=== PATIENT | male | born 1985 | race Caucasian/White ===

== ENCOUNTER 2022-02-24 15:30 | Emergency (ER) | payer OTHER ==
[~2022-02-24] VITALS: Ht 182.9 cm; Wt 74.8 kg
--- NOTE | 2022-02-24 15:56 | NUR ---
TO ER BED 13, DEPRESSED, FEELING SUICIDAL W/ PLAN TO "HANG MYSELF" WANTS VOL PSYCH ADMIT TO [id number], BREATHING EVEN AND NON LABORED, CONNECTED TO MONITOR, AWAITING MD WINKLER
--- NOTE | 2022-02-24 16:00 | NUR ---
URINE SAMPLE AND COVID SWAB COLLECTED AND SENT TO LAB
[2022-02-24 16:33] LABS: BASOPHILS % (AUTO) 0.4 % (0.0-2.0); EOSINOPHILS % (AUTO) 0.7 % (0.0-6.0); HEMATOCRIT 44 % (39-51); HEMOGLOBIN 14.5 g/dL (13.5-17.5); LYMPHOCYTES # (AUTO) 1.3 K/uL (0.8-4.8); LYMPHOCYTES % (AUTO) 16.5 % (20.0-44.0); MEAN CORPUSCULAR HGB CONC 33 g/dl (31.0-36.0); MEAN CORPUSCULAR VOLUME 101 fL (80-96); MONOCYTES # (AUTO) 0.6 K/uL (0.1-1.30); MONOCYTES % (AUTO) 8.1 % (2.0-12.0); NEUTROPHILS # (AUTO) 5.7 K/uL (1.8-8.9); NEUTROPHILS % (AUTO) 74.3 % (43.0-81.0); PLATELET COUNT (AUTO) 226 K/uL (150-450); WHITE BLOOD COUNT (AUTO) 7.7 K/uL (4.3-11.0)
[2022-02-24 17:04] LABS: BILIRUBIN,URINE NEGATIVE (NEGATIVE); COLOR,URINE YELLOW (YELLOW); LEUKOCYTE ESTERASE ,URINE NEGATIVE (NEGATIVE); NITRITE, URINE NEGATIVE (NEGATIVE); PROTEIN,URINE NEGATIVE (NEGATIVE); UGLUCOSE NEGATIVE (NEGATIVE)
[2022-02-24 17:38] LABS: BACTERIA,URINE None seen /HPF (None Seen); MUCUS,URINE Few /LPF (None Seen); RBC,URINE 0-2 /HPF (0-2); SQUAMOUS EPITHELIAL CELL,UR 0-2 /HPF (None Seen); WBC,URINE 0-2 /HPF (0-3)
[2022-02-24 18:02] LABS: CALCIUM, SERUM 8.7 mg/dL (8.5-10.1); CARBON DIOXIDE 29 mmol/L (21-32); CHLORIDE 103 mmol/L (98-107); GLUCOSE 96 mg/dL (74-106); POTASSIUM 3.1 mmol/L (3.5-5.1); SODIUM SERUM 140 mmol/L (136-145); UREA NITROGEN, BLOOD 13 mg/dL (7-18)
--- NOTE | 2022-02-24 18:05 | NUR ---
DINNER TRAY PROVIDED. TOLERATED WELL
[2022-02-24 18:07] LABS: ALANINE AMINOTRANSFERASE 38 U/L (12-78); ALBUMIN 3.5 g/dL (3.4-5.0); ALKALINE PHOSPHATASE 126 U/L (46-116); ASPARTATE AMINOTRANSFERASE 36 U/L (15-37); BILIRUBIN,DIRECT 0.3 mg/dL (0.0-0.2); BILIRUBIN,TOTAL 1.1 mg/dL (0.2-1.0); TOTAL PROTEIN, SERUM 6.6 g/dL (6.4-8.2)
[2022-02-24 18:08] LABS: ACETAMINOPHEN 0 ug/ml (10-30); ALCOHOL, BLOOD < 3 mg/dL (0-0)
[2022-02-24] MEDS ORDERED: LORAZEPAM 1 MG TABLET ONE (18:17)
--- NOTE | 2022-02-24 18:19 | NUR ---
ANXIOUS, REQUESTING MEDICATION TO RELAX. DR EVANS AWARE. MEDICATED ORDERED.
[2022-02-24] MEDS ORDERED: LORAZEPAM 1 MG TABLET PO ONE (18:30)
[2022-02-24] MEDS ORDERED: POTASSIUM CHLORIDE 20 MEQ TAB.PRT.SR PO ONE ×2 (19:00→19:04)
--- NOTE | 2022-02-24 23:34 | NUR ---
CLINICALS FAXED TO [facility]
--- NOTE | 2022-02-25 04:32 | NUR ---
PER JESSICA FROM [facility], PT ACCEPTED BUT WILL CALL BACK AROUND 0900 FOR ACCEPTING INFO
[2022-02-25] MEDS ORDERED: LORAZEPAM 1 MG TABLET ONE ×3 (06:48→20:30)
[2022-02-25] MEDS ORDERED: LORAZEPAM 1 MG TABLET PO ONE ×3 (07:00→20:30)
--- NOTE | 2022-02-25 11:16 | NUR ---
CALLED INTAKE PT ACCEPTED AWAITING BED ASSIGNMENT PER
--- NOTE | 2022-02-25 11:37 | NUR ---
[facility] CALLED, BED NOT AVAILABLE YET
[2022-02-25] MEDS ORDERED: POTASSIUM CHLORIDE 20 MEQ TAB.PRT.SR PO ONE ×2 (14:00→14:03)
[2022-02-25] MEDS ORDERED: OLANZAPINE 10 MG VIAL IM ONE ×2 (14:26→14:30)
[2022-02-25] MEDS ORDERED: LORAZEPAM INJ 2 MG/ML VIAL IV ONE (20:30)
--- NOTE | 2022-02-25 23:20 | NUR ---
LAB AT BEDSIDE FOR BLOOD REDRAW.
--- NOTE | 2022-02-26 00:39 | NUR ---
REPEAT POTASSIUM FAXED TO [facility].
--- NOTE | 2022-02-26 00:47 | NUR ---
ACCEPTED AT [facility] UNDER DR. TAYLOR NUMBER FOR REPORT [phone] PER JESSICA
--- NOTE | 2022-02-26 00:54 | NUR ---
[facility] ETA 1 HOUR TO 1 HOUR AND A HALF
--- NOTE | 2022-02-26 00:59 | NUR ---
REPORT GIVEN TO JHON
--- NOTE | 2022-02-26 01:00 | NUR ---
ROOM 652-A AT [facility]
--- NOTE | 2022-02-26 01:31 | NUR ---
[facility] AT BEDSIDE FOR PATIENT TRANSPORT TO [facility].
[2022-02-26 01:32] VITALS: BP 112/78
== END 2022-02-26 01:54 ==
LOC: ER 15:37
DX: R45.851 Suicidal ideations (principal); F31.9 Bipolar disorder, unspecified; E87.6 Hypokalemia; Z20.822 Contact with and (suspected) exposure to COVID-19
CPT/HCPCS: 99285; 85025; 80048; 80076; 81001; 36415 ×2; 87426; 80143; 80320; 80307; 96372; 84132; C9803; J3490; G0480

== ENCOUNTER 2022-11-05 13:49 | Emergency (ER) | payer MEDICAID, OTHER ==
[~2022-11-05] VITALS: Ht 182.9 cm; Wt 81.6 kg
--- NOTE | 2022-11-05 14:33 | NUR ---
[facility] REQUESTING VOLUNTARY ADMISSION TO PSYCH,STS HE IS WITHDRAWING FROM ALCOHOL AND FEELING SUICIDAL WITH NO PLAN. - HI. - HALLUCINATIONS. THE PATIENRT IS IN ROOM AIR AND DENIES SOB. RESPIRATION REGULAR AND UNLABORED. DENIES PAIN. WILL CONTINUE TO MONITOR THE PATIENT.
--- NOTE | 2022-11-05 16:41 | NUR ---
TO ER 15,SECURITY FOR WANDING
[2022-11-05] MEDS ORDERED: IV D5 LR 1,000 ML IV ONE (17:30)
[2022-11-05] MEDS ORDERED: CHLORDIAZEPOXIDE HCL 25 MG CAPSULE PO ONE (17:30)
[2022-11-05] MEDS ORDERED: CHLORDIAZEPOXIDE HCL 25 MG CAPSULE ONE (17:37)
[2022-11-05 19:29] LABS: BASOPHILS % (AUTO) 0.4 % (0.0-2.0); EOSINOPHILS % (AUTO) 1.2 % (0.0-6.0); HEMATOCRIT 42 % (39-51); HEMOGLOBIN 13.7 g/dL (13.5-17.5); LYMPHOCYTES # (AUTO) 2.3 K/uL (0.8-4.8); LYMPHOCYTES % (AUTO) 41.6 % (20.0-44.0); MEAN CORPUSCULAR HGB CONC 33 g/dl (31.0-36.0); MEAN CORPUSCULAR VOLUME 96 fL (80-96); MONOCYTES # (AUTO) 0.5 K/uL (0.1-1.30); MONOCYTES % (AUTO) 9.4 % (2.0-12.0); NEUTROPHILS # (AUTO) 2.6 K/uL (1.8-8.9); NEUTROPHILS % (AUTO) 47.4 % (43.0-81.0); PLATELET COUNT (AUTO) 211 K/uL (150-450); RED BLOOD CELL COUNT(AUTO) 4.34 MIL/uL (4.5-6.0); WHITE BLOOD COUNT (AUTO) 5.6 K/uL (4.3-11.0)
[2022-11-05 19:53] LABS: ALANINE AMINOTRANSFERASE 42 U/L (12-78); ALBUMIN 3.6 g/dL (3.4-5.0); ALCOHOL, BLOOD 128 mg/dL (0-0); ALKALINE PHOSPHATASE 89 U/L (46-116); ASPARTATE AMINOTRANSFERASE 16 U/L (15-37); BILIRUBIN,DIRECT 0.1 mg/dL (0.0-0.2); BILIRUBIN,TOTAL 0.2 mg/dL (0.2-1.0); CALCIUM, SERUM 8.5 mg/dL (8.5-10.1); CARBON DIOXIDE 26 mmol/L (21-32); CHLORIDE 109 mmol/L (98-107); CREATININE 0.8 mg/dL (0.6-1.3); POTASSIUM 4.3 mmol/L (3.5-5.1); SODIUM SERUM 144 mmol/L (136-145); TOTAL PROTEIN, SERUM 6.7 g/dL (6.4-8.2); UREA NITROGEN, BLOOD 9 mg/dL (7-18)
[2022-11-05 20:06] LABS: GLUCOSE 376 mg/dL (74-106)
[2022-11-05] MEDS ORDERED: IV NS 0.9% 1,000 ML IV ONE (20:30)
--- NOTE | 2022-11-05 20:36 | NUR ---
URINE COLLECTED AND SENT TO LAB
[2022-11-05 20:55] LABS: BILIRUBIN,URINE NEGATIVE (NEGATIVE); COLOR,URINE YELLOW (YELLOW); LEUKOCYTE ESTERASE ,URINE NEGATIVE (NEGATIVE); NITRITE, URINE NEGATIVE (NEGATIVE); PROTEIN,URINE NEGATIVE (NEGATIVE); UGLUCOSE NEGATIVE (NEGATIVE); UROBILINOGEN,URINE 0.2 EU/dL (0.2)
[2022-11-05] MEDS ORDERED: LORAZEPAM INJ 2 MG/ML VIAL IV ONE (21:00)
[2022-11-05] MEDS ORDERED: LORAZEPAM INJ 2 MG/ML VIAL ONE (21:16)
--- NOTE | 2022-11-05 22:25 | NUR ---
COVID SWAB DONE
--- NOTE | 2022-11-05 22:32 | NUR ---
DINNER TRAY PROVIDED, TOLERATED WELL
--- NOTE | 2022-11-06 04:39 | NUR ---
FAXED CLINICALS TO [facility]
--- NOTE | 2022-11-06 10:32 | NUR ---
[facility] CALLED WITH ACCEPTANCE INFO DR. BETANCUR CALLED [phone] ETA FOR TRANSPORT 1200
--- NOTE | 2022-11-06 12:10 | NUR ---
ETA FOR PICKUP IS 1230
[2022-11-06 12:53] VITALS: BP 122/66
--- NOTE | 2022-11-06 12:53 | NUR ---
PICKED UP [facility]SPORTATION IN STABLE CONDITION.
== END 2022-11-06 12:53 ==
LOC: ER 13:52
DX: R45.851 Suicidal ideations (principal); F31.9 Bipolar disorder, unspecified; F10.129 Alcohol abuse with intoxication, unspecified; F17.200 Nicotine dependence, unspecified, uncomplicated; Z60.2 Problems related to living alone; Z20.822 Contact with and (suspected) exposure to COVID-19; Y90.6 Blood alcohol level of 120-199 mg/100 ml
CPT/HCPCS: 99285; 96374; 96361; 85025; 80048; 80076; 81003; 36415; 82962 ×3; 87426; 80143; 80320; 80307; J2060; J3490 ×2; J7030 ×2; C9803; G0480